=== PATIENT | female | born 1995 | race Caucasian/White ===

== ENCOUNTER 2017-11-19 21:45 | Emergency (ER) | payer OTHER ==
[~2017-11-19] VITALS: Ht 162.6 cm; Wt 57.2 kg
[2017-11-19 22:38] VITALS: TEMP 36.8; Ht 162.6 cm; Wt 57.2 kg
[2017-11-19] MEDS ORDERED: PHENAZOPYRIDINE HOME PACK 200 MG VIAL PO ONE (23:00)
[2017-11-19] MEDS ORDERED: CEPHALEXIN 500MG HOME PACK 1 EA BTL PO ONE (23:00)
[2017-11-19] MEDS ORDERED: CEPH500C2 PO (23:09)
[2017-11-19] MEDS ORDERED: PHEN-876 PO (23:09)
[2017-11-19] MEDS ORDERED: LACT1CAP6 PO (23:15)
[2017-11-19] MEDS ORDERED: CRAN400C PO (23:15)
[2017-11-19] MEDS ORDERED: MULT-920 PO (23:15)
[2017-11-19] MEDS ORDERED: MULT-506 PO (23:15)
[2017-11-19] MEDS ORDERED: DEXT5LIQ23 PO (23:15)
[2017-11-19 23:18] VITALS: BP 110/68; PULSE 82; O2SAT 99
--- NOTE | 2017-11-20 05:39 | EMERGENCY ROOM VISIT NOTE ---
History First contact with patient: 22:43 Chief Complaint: URINARY SYMPTOMS Stated Complaint: URINATING BLOOD, UTI Nursing Triage Summary: Burning with urination and hematuria starting today History of Present Illness The patient is a 22 year old female who presents to the Emergency Room with complaints of urinary frequency, urgency and hematuria for the past day. Patient has had 4 UTIs this year. She has not seen a urologist. Patient denies chest pain, back pain, flank pain, fevers, vomiting. Review of Systems See HPI for pertinent positives & negatives. A total of 6 systems reviewed and were otherwise negative. Past Medical/Surgical History UTIs Social History Smoking Status: Never Smoker Smokeless Tobacco Use: No Drug Use: none Marital Status: in relationship Occupation Status: [employer] student Current/Historical Medications Scheduled Cephalexin Monohydrate (Keflex), 500 MG PO BID Cranberry (Vaccinium Macrocarp (Cranberry), 1 DOSE PO DAILY Lactobacillus (Probiotic), 1 CAP PO DAILY Multivitamin (Multivitamin), 1 TAB PO DAILY Phenazopyridine HCl (Pyridium), 200 MG PO TID Scheduled PRN Dextromethorphan Polistirex (Delsym), 5 ML PO DIRECTED PRN for Cough Multiple Vitamins W/ Minerals (Airborne), 1 TAB PO DIRECTED PRN for COLD SEASON Physical Exam Vital Signs Date Time Temp Pulse Resp B/P (MAP) Pulse Ox O2 Delivery O2 Flow Rate FiO2 11/19/17 23:18 82 16 110/68 99 11/19/17 22:38 36.8 88 18 118/72 97 Room Air Physical Exam VITALS: Vitals are noted on the nurse's note and reviewed by myself. Vital signs stable. GENERAL: Pleasant female, in no acute distress, nondiaphoretic, well-developed well-nourished. SKIN: Capillary reflex less than 2 seconds. HEENT: Normocephalic. PERRLA. EOMI. Nares patent. Mucous membranes moist. Neck is supple without nuchal rigidity. HEART: Regular rate and rhythm without murmurs gallops or rubs. LUNGS: Clear to auscultation bilaterally without wheezes, rales or rhonchi. No retractions or accessory muscle use. ABDOMEN: Positive bowel sounds x 4. Normal tympanic percussion. Soft, bladder tenderness, no CVA tenderness, without masses or organomegaly. Cardozo sign negative. No guarding or rebound tenderness. MUSCULOSKELETAL: No gross musculoskeletal defects. NEURO: Patient was alert and oriented to person place and time. Normal sensation to light and sharp touch. No focal neurological deficits. Medical Decision & Procedures Laboratory Results Test 11/19/17 22:50 Urine Test NEG (NEG) Medications Administered Medications (Trade) Dose Ordered Sig/Nain Route Start Time Stop Time Status Last Admin Dose Admin Cephalexin Monohydrate (Keflex 500MG Home Pack) 1 homepack NOW ONCE PO 11/19/17 23:00 11/19/17 23:01 DC 11/19/17 23:15 1 HOMEPACK Phenazopyridine HCl (Phenazopyridine HCl 200MG Home Pack) 1 homepack UD ONCE PO 11/19/17 23:00 11/19/17 23:01 DC 11/19/17 23:15 1 HOMEPACK ED Course Prior records reviewed and summarized as above. Triage Nursing notes reviewed. Additional history obtained from boyfriend. The patient's history was concerning for urinary symptoms. Differential diagnosis: Etiologies such as cystitis, renal colic, vaginitis, STI, as well as others were entertained.. Physical examination: The physical examination was consistent with UTI ER treatment provided: Keflex, Pyridium On reassessment the patient felt better. Diagnostics interpreted by me: The labs revealed urine dip consistent with infection and sent for culture. Negative hCG This appears to be UTI. This is the patient's fourth one this year. She was given a referral to urology for the recurrent bladder infections. Patient had no CVA tenderness. She is well-appearing. She is afebrile and nontoxic. She is advised to take medicines as directed and to follow-up with urology and drink plenty of fluids or return to the ER immediately for fevers, vomiting, pain, worsening signs or symptoms or as needed. By the evaluation outlined above emergent etiologies such as pyelonephritis, renal colic, as well as others were deemed relatively unlikely. The pt informed about the findings as listed above. All questions were answered and pleased with the treatment. Return instructions were outlined and the patient was discharged in stable condition. Outpatient prescription management: Keflex, Pyridium Referral: The patient was referred back to urology and primary care physician for follow- up in 2 to 3 days for a recheck of the current condition. The chart was completed utilizing Dragon Speech voice recognition software. Grammatical errors, random word insertions, pronoun errors, and incomplete sentences are an occassional consequence of this system due to software limitations, ambient noise, and hardware issues. Any formal questions or concerns about the content, text, or information contained within the body of this dictation should be directly addressed to the physician pharmacy affairs assistant for clarification. Medical Decision As above Medication Reconcilliation Current Medication List: was personally reviewed by me Blood Pressure Screening Patient's blood pressure: Normal blood pressure Impression Primary Impression: Urinary tract infection Departure Information Dispostion Home / Self-Care Condition GOOD Prescriptions Cephalexin Monohydrate (KEFLEX) 500 Mg Cap 500 MG PO BID for 5 Days, #10 CAP Prov: Brielle Hammer .MARAH 11/19/17 Phenazopyridine HCl (Pyridium) 200 Mg Tab 200 MG PO TID for 2 Days, #6 TAB Prov: Brielle Hammer .MARAH 11/19/17 Referrals No Doctor, Assigned (PCP) Gordon Lynch MD, Urology Forms HOME CARE DOCUMENTATION FORM, IMPORTANT VISIT INFORMATION Patient Instructions UTI, My [facility] Additional Instructions Keflex 500 mg: Take one pill twice daily for 7 days for your urine infection. All antibiotics can cause diarrhea. If this occurs and you feel worse or it does not resolve in 1-2 days follow up with your doctor or return to the Emergency Department as this could be signs of serious underlying problems. Any medication can cause an allergic reaction, stop the pills immediately and return to the ER for rash, hives, breathing difficulties, or swelling. Pyridium 200mg: Take one pill three times daily as needed for urinary discomfort. This medication will turn your urine orange. This is normal and nothing to be concerned about. Ibuprofen(Motrin, Advil) may be used for fever or pain. Use 600mg every six hours as needed. Take with food. Avoid using more than 2400mg in a 24 hour period. Do not use 2400mg per day for more than three consecutive days without physician direction. Prolonged inappropriate use can lead to stomach upset or ulcers. (AND/OR) Acetaminophen(Tylenol) may be used for fever or pain. Use 1000mg every six hours as needed. Avoid using more than 3000mg in a 24 hour period. Rest and drink plenty of fluids as tolerated. Slow sips of water or sports drinks are recommended instead of large amounts all at once. Continue current medications. Once your stomach is settled start with a clear liquid diet (jello, soup broth, etc.) and then advance as tolerated. You should avoid full, heavy meals for about 24 hrs from the time your symptoms resolved. Return to the ER immediately for worsening or persistent abdominal/back pain, vomiting, fevers, worsening of your condition, or as needed. Follow up with your primary physician within 2-3 days for a recheck of the current condition. Recommend referral to urology for your recurrent UTIs. Problem Qualifiers Primary Impression: Urinary tract infection Urinary tract infection type: acute cystitis Hematuria presence: with hematuria Qualified Codes: N30.01 - Acute cystitis with hematuria
== END 2017-11-19 23:20 | disposition home or self-care (01) ==
LOC: C.EDB 21:47 → C.EDC 23:20
DX: N39.0 Urinary tract infection, site not specified (principal); Z79.899 Other long term (current) drug therapy

== ENCOUNTER → 2018-02-12 | Outpatient (CLI) | payer OTHER ==
[~2018-02-12] MED LIST: CRAN400C PO; DEXT5LIQ23 PO; LACT1CAP6 PO; MULT-506 PO; MULT-920 PO
--- NOTE | 2018-02-12 15:57 | DIAGNOSTIC IMAGING REPORT ---
CT SCAN OF THE ABDOMEN AND PELVIS WITHOUT CONTRAST CLINICAL HISTORY: R31.0 Gross [id number] Dysuria AUTH#[id number] VALID 01/21/18 COMPARISON STUDY: No previous studies for comparison. TECHNIQUE: CT scan of the abdomen and pelvis was performed from the lung bases to the proximal femurs. Images are reviewed in the axial, sagittal, and coronal planes. IV contrast was not administered for this examination. A dose lowering technique was utilized adhering to the principles of ALARA. CT DOSE: 276.91 mGy.cm FINDINGS: Lower chest: The heart is normal in size and configuration, without pericardial effusion. The lung bases and pleural spaces are clear. Liver: The unenhanced liver is normal in size, contour, and attenuation. There is no intrahepatic biliary ductal dilatation. Gallbladder: Unremarkable. Spleen: Normal in size and attenuation. Pancreas: Unremarkable. Adrenal glands: Unremarkable. Kidneys: No renal, ureteral, or bladder calculi are visualized. Bowel: There are no transition zones to indicate bowel obstruction. The appendix appears normal. There is no acute diverticulitis. Peritoneum: There is no intraperitoneal free air or abdominal ascites. Vasculature: The abdominal aorta is normal in course and caliber. Adenopathy: None. Pelvic viscera: There is an indwelling IUD. No pathologic adnexal masses are visualized Skeletal structures: No destructive osseous lesions are seen. IMPRESSION: 1. No acute intra-abdominal or pelvic findings 2. No renal, ureteral, or bladder calculi identified 3. No evidence of bowel obstruction. No evidence of free air 4. Normal appendix. No evidence of acute diverticulitis. Electronically signed by: Juliano Tse M.D. 02/12/2018 3:56 PM Dictated Date/Time: 02/12/2018 3:53 PM
== END | disposition home or self-care (01) ==
LOC: C.CTS 15:34
PROVIDERS: ATTEND Urology
DX: R31.0 Gross hematuria (principal); R30.0 Dysuria